=== PATIENT | female | born 1935 | race Caucasian/White ===

== ENCOUNTER → 2016-10-25 | Outpatient (CLI) | payer OTHER | LOC: US 13:29 | DX: N95.0 Postmenopausal bleeding (principal) | CPT/HCPCS: 76856 ==

== ENCOUNTER → 2021-01-16 | Outpatient (CLI) | payer OTHER | LOC: KOH-I 16:30 | DX: R51.9 Headache, unspecified (principal); R29.6 Repeated falls; G31.9 Degenerative disease of nervous system, unspecified | CPT/HCPCS: 70450 ==

== ENCOUNTER 2021-02-06 16:03 | Emergency (ER) | payer OTHER ==
[2021-02-06 17:26] LABS: HEMOGLOBIN 12.2 gm/dl (12.3-15.3); RED BLOOD COUNT 4.07 M/UL (4.00-5.10); WHITE BLOOD COUNT 4.8 K/UL (4.5-11.0)
[2021-02-06 17:50] LABS: BUN/CREATININE RATIO 13 (0-10)
[2021-03-01] MEDS ORDERED: ELIQUIS2.5 MG PO (07:11)
[2021-03-01] MEDS ORDERED: LOPRESSOR 25 MG25 MG PO (07:11)
[2021-03-01] MEDS ORDERED: FAMOTIDINE20 MG PO (07:11)
[2021-03-01] MEDS ORDERED: HYDROCHLOROTH12.5 MG PO (07:12)
[2021-03-01] MEDS ORDERED: ATORVASTATIN CA20 MG PO (07:13)
[2021-03-01] MEDS ORDERED: CELECOXIB200 MG PO (07:13)
[2021-03-01] MEDS ORDERED: ACCUPRIL 20 MG20 MG PO (07:13)
[2021-03-01] MEDS ORDERED: CALCIUM 500 MG1 EAC1 PO (07:14)
[2021-03-01] MEDS ORDERED: FISH OIL 1,2001 EAC1 PO (07:15)
[2021-03-01] MEDS ORDERED: MULTI-VITAMIN1 EACH PO (07:15)
== END 2021-02-06 20:20 | disposition home or self-care (01) ==
LOC: ER1 16:03
PROVIDERS: Emergency Medicine
DX: K62.5 Hemorrhage of anus and rectum (principal); K57.90 Diverticulosis of intestine, part unspecified, without perforation or abscess without bleeding; D64.9 Anemia, unspecified; I48.91 Unspecified atrial fibrillation
CPT/HCPCS: 80053; 81001; 82270; 83605; 83735; 84100; 85025; 85610; 85730; 86850; 86900; 86901; 87086; 93005; 99284; Q9965

== ENCOUNTER → 2021-03-01 | Day surgery (SDC) | payer OTHER ==
[~2021-03-01] MED LIST: ACCUPRIL 20 MG20 MG PO; ATORVASTATIN CA20 MG PO; CALCIUM 500 MG1 EAC1 PO; CELECOXIB200 MG PO; ELIQUIS2.5 MG PO; FAMOTIDINE20 MG PO; FISH OIL 1,2001 EAC1 PO; HYDROCHLOROTH12.5 MG PO; LOPRESSOR 25 MG25 MG PO; MULTI-VITAMIN1 EACH PO
== END | disposition home or self-care (01) ==
LOC: OR 05:59
DX: K57.31 Diverticulosis of large intestine without perforation or abscess with bleeding (principal); D62 Acute posthemorrhagic anemia; K22.70 Barrett's esophagus without dysplasia; K21.00 Gastro-esophageal reflux disease with esophagitis, without bleeding; K44.9 Diaphragmatic hernia without obstruction or gangrene; K64.0 First degree hemorrhoids; K64.4 Residual hemorrhoidal skin tags; I10 Essential (primary) hypertension; D68.9 Coagulation defect, unspecified; E78.00 Pure hypercholesterolemia, unspecified; M81.0 Age-related osteoporosis without current pathological fracture; M19.90 Unspecified osteoarthritis, unspecified site; I48.91 Unspecified atrial fibrillation; Z79.01 Long term (current) use of anticoagulants; Z79.899 Other long term (current) drug therapy
CPT/HCPCS: J2704; J7040

== ENCOUNTER 2021-06-17 11:29 | Emergency (ER) | payer OTHER | END 2021-06-17 15:00 | disposition home or self-care (01) | LOC: ER1 11:29 | DX: S32.19XA Other fracture of sacrum, initial encounter for closed fracture (principal); I10 Essential (primary) hypertension; E78.5 Hyperlipidemia, unspecified; D32.9 Benign neoplasm of meninges, unspecified; W01.0XXA Fall on same level from slipping, tripping and stumbling without subsequent striking against object, initial encounter | CPT/HCPCS: 71111; 72128; 72131; 99284 ==

== ENCOUNTER → 2021-09-20 | Outpatient (CLI) | payer OTHER | LOC: EROP 11:15 | DX: U07.1 COVID-19 (principal); Z23 Encounter for immunization; I48.91 Unspecified atrial fibrillation; I10 Essential (primary) hypertension | CPT/HCPCS: M0247; Q0247 ==

== ENCOUNTER 2021-12-04 10:16 | Emergency (ER) | payer OTHER ==
[2021-12-04 12:25] LABS: HEMOGLOBIN 14.9 gm/dl (12.3-15.3); RED BLOOD COUNT 4.92 M/UL (4.00-5.10)
[2021-12-04 12:47] LABS: BUN/CREATININE RATIO 21 (0-10)
== END 2021-12-04 14:52 | disposition home or self-care (01) ==
LOC: ER1 10:16
PROVIDERS: Physician Assistant
DX: E87.1 Hypo-osmolality and hyponatremia (principal); I48.91 Unspecified atrial fibrillation; E78.5 Hyperlipidemia, unspecified; I10 Essential (primary) hypertension; Z79.01 Long term (current) use of anticoagulants
CPT/HCPCS: 80053; 81001; 82550; 82553; 84484; 85025; 93005; 99285

== ENCOUNTER → 2021-12-21 | Outpatient (CLI) | payer OTHER | LOC: CT 12-20 15:00 | DX: R26.0 Ataxic gait (principal); C50.919 Malignant neoplasm of unspecified site of unspecified female breast; C41.3 Malignant neoplasm of ribs, sternum and clavicle | CPT/HCPCS: 70470; Q9967 ==

== ENCOUNTER 2022-02-14 10:09 | Emergency (ER) | payer OTHER ==
[2022-02-14 11:27] LABS: HEMOGLOBIN 13.7 gm/dl (12.3-15.3); RED BLOOD COUNT 4.31 M/UL (4.00-5.10); WHITE BLOOD COUNT 5.3 K/UL (4.5-11.0)
[2022-02-14 11:43] LABS: BUN/CREATININE RATIO 18 (0-10)
== END 2022-02-14 12:45 | disposition home or self-care (01) ==
LOC: ER1 10:09
PROVIDERS: Family Medicine
DX: S93.401A Sprain of unspecified ligament of right ankle, initial encounter (principal); I48.91 Unspecified atrial fibrillation; E87.6 Hypokalemia; Z79.01 Long term (current) use of anticoagulants; W19.XXXA Unspecified fall, initial encounter
CPT/HCPCS: 73610; 80048; 85025; 93005; 99284

== ENCOUNTER → 2022-03-29 | Outpatient (CLI) | payer OTHER | LOC: KOH-I 15:04 | DX: C50.911 Malignant neoplasm of unspecified site of right female breast (principal); R63.4 Abnormal weight loss; M54.6 Pain in thoracic spine; D43.4 Neoplasm of uncertain behavior of spinal cord | CPT/HCPCS: 71250 ==